=== PATIENT | male | born 1975 | race Caucasian/White ===

== ENCOUNTER 2020-09-11 19:26 | Emergency (ER) | payer OTHER ==
[~2020-09-11] VITALS: Ht 182.9 cm; Wt 68.0 kg
[~2020-09-11 19:26] MED LIST: CYCLOBENZAPRINE5 MG PO; IBUPROFEN 800800 M1 PO; NORCO 5-325 TA1 EACH PO
[2020-09-11] MEDS ORDERED: NORCO7.5 PO (21:14)
[2020-09-11] MEDS ORDERED: IBUPROFEN 600600 M1 PO (21:14)
[2020-09-11 21:22] VITALS: BP 101/58
== END 2020-09-11 21:23 | disposition home or self-care (01) ==
LOC: ER 19:26
DX: S43.491A Other sprain of right shoulder joint, initial encounter (principal); S13.8XXA Sprain of joints and ligaments of other parts of neck, initial encounter; S70.02XA Contusion of left hip, initial encounter; F17.210 Nicotine dependence, cigarettes, uncomplicated; V89.2XXA Person injured in unspecified motor-vehicle accident, traffic, initial encounter; Y93.I9 Activity, other involving external motion; Y92.89 Other specified places as the place of occurrence of the external cause; Y99.8 Other external cause status